=== PATIENT | female | born 1955 | race Caucasian/White ===

== ENCOUNTER 2017-08-12 11:00 | Emergency (ER) | payer BC ==
[2017-08-12] MEDS: LIDOCAINE 1% (MDV) 20 ML INJ SC (11:23)
[2017-08-12] MEDS: DIPHTH/TET/ACEL PERTUSS (ADULT) 0.5 ML VIAL IM* (11:23)
[2017-08-12] MEDS: STERILE WATER 1L IRRIG BTL IRR (11:23)
== END 2017-08-12 12:26 | disposition home or self-care (01) ==
LOC: FTE 11:00
DX: S91.112A Laceration without foreign body of left great toe without damage to nail, initial encounter (principal); E11.9 Type 2 diabetes mellitus without complications; W45.8XXA Other foreign body or object entering through skin, initial encounter; Y92.9 Unspecified place or not applicable; Z23 Encounter for immunization; Z79.4 Long term (current) use of insulin; Z79.82 Long term (current) use of aspirin
CPT/HCPCS: 12001; 73660; 90471; 90715; 99283-25

== ENCOUNTER 2017-10-01 16:11 | Emergency (ER) | payer BC ==
[2017-10-01 17:12] LABS: ADD MAN DIFF? NO
[2017-10-01 17:18] LABS: WHITE BLOOD COUNT 9.5 10^3/ul (4.8-10.8)
[2017-10-01 17:18] LABS: BASOPHILS % 0.3 % (0.0-2.0); EOSINOPHILS # 0.1 10^3/ul (0.0-0.5); EOSINOPHILS % 0.8 % (0.0-7.0); HEMOGLOBIN 11.9 g/dl (12.0-16.0); LYMPHOCYTES # 3.6 10^3/ul (0.8-2.9); LYMPHOCYTES % 37.4 % (15.0-51.0); MEAN CORPUSCULAR HEMOGLOBIN 25.1 pg (29.0-33.0); MEAN CORPUSCULAR HGB CONC 31.3 g/dl (32.0-37.0); MEAN CORPUSCULAR VOLUME 80.2 fl (82.0-101.0); MEAN PLATELET VOLUME 11.6 fl (7.4-10.4); MONOCYTE # 0.7 10^3/ul (0.3-0.9); MONOCYTES % 6.8 % (0.0-11.0); NEUTROPHIL # 5.2 10^3/ul (1.6-7.5); NEUTROPHILS % 54.4 % (39.0-77.0); PLATELET COUNT 228 10^3/UL (140-415); RED BLOOD COUNT 4.74 10^6/ul (4.20-5.40); RED CELL DISTRIBUTION WIDTH 14.8 % (11.5-14.5)
[2017-10-01 17:39] LABS: ALANINE AMINOTRANSFERASE 24 IU/L (13-69); ALBUMIN 4.3 g/dl (3.3-4.9); ALBUMIN/GLOBULIN RATIO 1.22; ALKALINE PHOSPHATASE 66 IU/L (42-121); ANION GAP 19 (8-16); ASPARTATE AMINO TRANSFERASE 17 IU/L (15-46); BILIRUBIN,INDIRECT 0.1 mg/dl (0-1.1); BILIRUBIN,TOTAL 0.1 mg/dl (0.2-1.3); BLOOD UREA NITROGEN 15 mg/dl (7-20); CALCIUM 9.8 mg/dl (8.4-10.2); CARBON DIOXIDE 26 mmol/L (21-31); CHLORIDE 106 mmol/L (97-110); CREATININE 0.58 mg/dl (0.44-1.00); GLUCOSE 207 mg/dl (70-220); POTASSIUM 4.7 mmol/L (3.5-5.1); SODIUM 146 mmol/L (135-144); TOTAL PROTEIN 7.8 g/dl (6.1-8.1)
[2017-10-01 17:47] LABS: INR 1.02; PROTIME 13.5 Sec (11.9-14.9); PT RATIO 1.1
[2017-10-01 17:48] LABS: B-TYPE NATRIURETIC PEPTIDE 61 PG/ML (0-125); PARTIAL THROMBOPLASTIN TIME 26.3 Sec (25.0-35.0)
[2017-10-01 17:49] LABS: TROPONIN-I < 0.012 ng/ml (0.00-0.12)
== END 2017-10-01 19:05 | disposition home or self-care (01) ==
LOC: E/R 16:11
DX: R06.00 Dyspnea, unspecified (principal); D64.9 Anemia, unspecified; E11.9 Type 2 diabetes mellitus without complications; I10 Essential (primary) hypertension; E03.9 Hypothyroidism, unspecified; Z79.4 Long term (current) use of insulin; Z79.82 Long term (current) use of aspirin
CPT/HCPCS: 36415; 71045; 80053; 83880; 84484; 85025; 85378; 85610; 85730; 93005; 99285-25

== ENCOUNTER 2017-10-12 13:35 | Inpatient (IN) | payer BC ==
[2017-10-12] MEDS ORDERED: ACETAMINOPHEN 500 MG TAB PO (15:30)
[2017-10-12] MEDS ORDERED: VANCOMYCIN IV PER PHARMACY XX (15:30)
[2017-10-12] MEDS ORDERED: GLUCOSE GEL 15 GRAM TUBE PO ×2 (16:00)
[2017-10-12] MEDS ORDERED: GLUCOSE GEL 15 GRAM TUBE BUCCAL (16:00)
[2017-10-12] MEDS ORDERED: GLUCAGON 1 MG INJ IM (16:00)
[2017-10-12] MEDS ORDERED: DEXTROSE 50% 50 ML SYRINGE IV ×2 (16:00)
[2017-10-12] MEDS: SOD CHLORIDE 0.45% 1,000 ML IV (16:03)
[2017-10-12] MEDS: [UNRECOGNIZED DRUG - REMARK] XX (17:30)
[2017-10-12] MEDS: VANCOMYCIN 2 GM in SOD CHLORIDE 0.9% 500 ML IVPB (17:31)
[2017-10-12 17:36] LABS: ADD MAN DIFF? NO
[2017-10-12 17:38] LABS: WHITE BLOOD COUNT 7.5 10^3/ul (4.8-10.8)
[2017-10-12 17:38] LABS: BASOPHILS % 0.4 % (0.0-2.0); EOSINOPHILS # 0.1 10^3/ul (0.0-0.5); EOSINOPHILS % 1.6 % (0.0-7.0); HEMATOCRIT 38.5 % (37.0-47.0); HEMOGLOBIN 12.1 g/dl (12.0-16.0); LYMPHOCYTES # 2.3 10^3/ul (0.8-2.9); MEAN CORPUSCULAR HEMOGLOBIN 25.4 pg (29.0-33.0); MEAN CORPUSCULAR HGB CONC 31.4 g/dl (32.0-37.0); MEAN CORPUSCULAR VOLUME 80.9 fl (82.0-101.0); MEAN PLATELET VOLUME 12.2 fl (7.4-10.4); MONOCYTE # 0.6 10^3/ul (0.3-0.9); MONOCYTES % 7.6 % (0.0-11.0); NEUTROPHIL # 4.4 10^3/ul (1.6-7.5); PLATELET COUNT 217 10^3/UL (140-415); RED BLOOD COUNT 4.76 10^6/ul (4.20-5.40); RED CELL DISTRIBUTION WIDTH 14.8 % (11.5-14.5)
[2017-10-12 18:13] LABS: ALANINE AMINOTRANSFERASE 24 IU/L (13-69); ALBUMIN 4.1 g/dl (3.3-4.9); ALBUMIN/GLOBULIN RATIO 1.24; ALKALINE PHOSPHATASE 58 IU/L (42-121); ANION GAP 17 (8-16); ASPARTATE AMINO TRANSFERASE 17 IU/L (15-46); BILIRUBIN,INDIRECT 0.1 mg/dl (0-1.1); BILIRUBIN,TOTAL 0.1 mg/dl (0.2-1.3); BLOOD UREA NITROGEN 19 mg/dl (7-20); CALCIUM 9.8 mg/dl (8.4-10.2); CARBON DIOXIDE 27 mmol/L (21-31); CHLORIDE 100 mmol/L (97-110); GLUCOSE 231 mg/dl (70-220); POTASSIUM 4.4 mmol/L (3.5-5.1); SODIUM 140 mmol/L (135-144); TOTAL PROTEIN 7.4 g/dl (6.1-8.1)
[2017-10-12] MEDS: ASPIRIN 81 MG TAB PO (18:19)
[2017-10-12] MEDS: INSULIN ASPART [NOVOLOG] 3 ML PEN SC ×2 (18:22→21:08)
[2017-10-12] MEDS: INSULIN GLARGINE [LANtus] 3 ML PEN SC (21:06)
[2017-10-12 22:10] LABS: ADD UMIC NO; UR ASCORBIC ACID NEGATIVE (NEGATIVE); UR BILIRUBIN (Dip) NEGATIVE (NEGATIVE); UR BLOOD (Dip) NEGATIVE (NEGATIVE); UR CLARITY CLEAR (CLEAR); UR COLOR STRAW (YELLOW); UR GLUCOSE (Dip) 1+ mg/dL (NEGATIVE); UR KETONES (Dip) NEGATIVE (NEGATIVE); UR LEUKOCYTE ESTERASE (Dip) NEGATIVE Leu/ul (NEGATIVE); UR NITRITE (Dip) NEGATIVE (NEGATIVE); UR SPECIFIC GRAVITY (Dip) 1.009 (1.003-1.030); UR TOTAL PROTEIN (Dip) NEGATIVE (NEGATIVE); UR UROBILINOGEN (Dip) NEGATIVE (NEGATIVE)
[2017-10-12] MEDS ORDERED: ONDANSETRON 4 MG INJ IV (22:30)
[2017-10-12] MEDS: ZOLPIDEM 5 MG TAB PO (22:58)
[2017-10-13] MEDS: [UNRECOGNIZED DRUG - REMARK] XX ×2 (01:30→09:30)
[2017-10-13] MEDS: INSULIN ASPART [NOVOLOG] 3 ML PEN SC ×6 (03:00→21:48)
[2017-10-13] MEDS: VANCOMYCIN 1.25 GM in SOD CHLORIDE 0.9% 250 ML IVPB ×2 (05:41→17:45)
[2017-10-13] MEDS: LEVOTHYROXINE 100 MCG TAB PO (05:41)
[2017-10-13] MEDS: ASPIRIN 81 MG TAB PO (08:59)
[2017-10-13] MEDS: SOD CHLORIDE 0.45% 1,000 ML IV (13:10)
[2017-10-13] MEDS: ENOXAPARIN 30 MG/0.3 ML SYG SC (20:48)
[2017-10-13] MEDS: JANUVIA PO (20:50)
[2017-10-13] MEDS: SIMVASTATIN PO (20:50)
[2017-10-13] MEDS: INSULIN GLARGINE [LANtus] 3 ML PEN SC (21:01)
[2017-10-14] MEDS: ZOLPIDEM 5 MG TAB PO ×2 (01:29→22:24)
[2017-10-14] MEDS: INSULIN ASPART [NOVOLOG] 3 ML PEN SC ×8 (02:32→20:47)
[2017-10-14 04:19] LABS: ADD MAN DIFF? NO
[2017-10-14 04:24] LABS: WHITE BLOOD COUNT 6.3 10^3/ul (4.8-10.8)
[2017-10-14 04:24] LABS: BASOPHILS % 0.5 % (0.0-2.0); EOSINOPHILS # 0.2 10^3/ul (0.0-0.5); EOSINOPHILS % 2.7 % (0.0-7.0); HEMATOCRIT 35.8 % (37.0-47.0); HEMOGLOBIN 11.1 g/dl (12.0-16.0); LYMPHOCYTES # 2.2 10^3/ul (0.8-2.9); LYMPHOCYTES % 35.3 % (15.0-51.0); MEAN CORPUSCULAR HEMOGLOBIN 25.1 pg (29.0-33.0); MEAN CORPUSCULAR VOLUME 80.8 fl (82.0-101.0); MEAN PLATELET VOLUME 11.5 fl (7.4-10.4); MONOCYTE # 0.5 10^3/ul (0.3-0.9); MONOCYTES % 8.6 % (0.0-11.0); NEUTROPHIL # 3.3 10^3/ul (1.6-7.5); NEUTROPHILS % 52.6 % (39.0-77.0); PLATELET COUNT 187 10^3/UL (140-415); RED BLOOD COUNT 4.43 10^6/ul (4.20-5.40)
[2017-10-14 04:39] LABS: ANION GAP 15 (8-16); BLOOD UREA NITROGEN 15 mg/dl (7-20); CALCIUM 9.2 mg/dl (8.4-10.2); CARBON DIOXIDE 26 mmol/L (21-31); CHLORIDE 103 mmol/L (97-110); CREATININE 0.69 mg/dl (0.44-1.00); GLUCOSE 341 mg/dl (70-220); POTASSIUM 4.5 mmol/L (3.5-5.1); SODIUM 139 mmol/L (135-144)
[2017-10-14] MEDS: VANCOMYCIN 1.25 GM in SOD CHLORIDE 0.9% 250 ML IVPB ×2 (05:05→16:46)
[2017-10-14] MEDS: LEVOTHYROXINE 100 MCG TAB PO (06:44)
[2017-10-14] MEDS: ASPIRIN 81 MG TAB PO (09:30)
[2017-10-14] MEDS: ENOXAPARIN 30 MG/0.3 ML SYG SC (09:31)
[2017-10-14] MEDS: SOD CHLORIDE 0.45% 1,000 ML IV ×2 (09:35→22:19)
[2017-10-14] MEDS: SIMVASTATIN PO (20:41)
[2017-10-14] MEDS: JANUVIA PO (20:42)
[2017-10-14] MEDS: INSULIN GLARGINE [LANtus] 3 ML PEN SC (20:48)
[2017-10-15] MEDS: LEVOTHYROXINE 100 MCG TAB PO (05:07)
[2017-10-15] MEDS: VANCOMYCIN 1.25 GM in SOD CHLORIDE 0.9% 250 ML IVPB ×2 (05:08→17:25)
[2017-10-15] MEDS: ASPIRIN 81 MG TAB PO (08:29)
[2017-10-15] MEDS: INSULIN ASPART [NOVOLOG] 3 ML PEN SC ×7 (08:31→21:01)
[2017-10-15] MEDS: ENOXAPARIN 30 MG/0.3 ML SYG SC (08:33)
[2017-10-15] MEDS: SIMVASTATIN PO (20:55)
[2017-10-15] MEDS: JANUVIA PO (20:56)
[2017-10-15] MEDS: INSULIN GLARGINE [LANtus] 3 ML PEN SC (21:02)
[2017-10-15] MEDS: SOD CHLORIDE 0.45% 1,000 ML IV (23:30)
[2017-10-16] MEDS: VANCOMYCIN 1.25 GM in SOD CHLORIDE 0.9% 250 ML IVPB (05:01)
[2017-10-16 05:33] LABS: BLOOD UREA NITROGEN 15 mg/dl (7-20)
[2017-10-16 05:33] LABS: CREATININE 0.65 mg/dl (0.44-1.00)
[2017-10-16] MEDS: LEVOTHYROXINE 100 MCG TAB PO (05:51)
[2017-10-16] MEDS: SODIUM HYPOCHLORITE 1/40% 1L IRRIG IRR ×3 (05:51→21:09)
[2017-10-16] MEDS: ASPIRIN 81 MG TAB PO (08:32)
[2017-10-16] MEDS: INSULIN ASPART [NOVOLOG] 3 ML PEN SC ×8 (08:35→21:25)
[2017-10-16] MEDS: ENOXAPARIN 30 MG/0.3 ML SYG SC (08:37)
[2017-10-16] MEDS: SOD CHLORIDE 0.45% 1,000 ML IV (19:30)
[2017-10-16] MEDS: SIMVASTATIN PO (21:08)
[2017-10-16] MEDS: JANUVIA PO (21:08)
[2017-10-16] MEDS: INSULIN GLARGINE [LANtus] 3 ML PEN SC (21:12)
[2017-10-17] MEDS: ACCU-CHEK XX (01:47)
[2017-10-17] MEDS: INSULIN ASPART [NOVOLOG] 3 ML PEN SC ×3 (01:48→09:05)
[2017-10-17] MEDS: LEVOTHYROXINE 100 MCG TAB PO (06:21)
[2017-10-17] MEDS: ASPIRIN 81 MG TAB PO (09:02)
[2017-10-17] MEDS: SODIUM HYPOCHLORITE 1/40% 1L IRRIG IRR (09:05)
[2017-10-17] MEDS: LORAZEPAM 0.5 MG TAB PO (09:52)
== END 2017-10-17 15:20 | disposition home or self-care (01) | DRG 623 ==
LOC: MS1 13:35
PROC: 0JBR0ZZ Excision of Left Foot Subcutaneous Tissue and Fascia, Open Approach (ICD-10-PCS; principal; 2017-10-15)
DX: E11.621 Type 2 diabetes mellitus with foot ulcer (principal); L97.528 Non-pressure chronic ulcer of other part of left foot with other specified severity; E11.42 Type 2 diabetes mellitus with diabetic polyneuropathy; E11.65 Type 2 diabetes mellitus with hyperglycemia; L03.032 Cellulitis of left toe; E03.9 Hypothyroidism, unspecified; I10 Essential (primary) hypertension; E78.5 Hyperlipidemia, unspecified
CPT/HCPCS: 73630-LT; 73718; 80048; 80053; 80202; 81003; 82565; 82962; 84520; 85025; 85651; 87040; 87070; 87086; 93005; 93926; 93971; 97161

== ENCOUNTER 2017-10-18 15:49 | Emergency (ER) | payer BC ==
[2017-10-18 17:55] LABS: ADD MAN DIFF? NO
[2017-10-18] MEDS: SOD CHLORIDE 0.9% 500 ML IV (17:56)
[2017-10-18 17:59] LABS: WHITE BLOOD COUNT 8.7 10^3/ul (4.8-10.8)
[2017-10-18 17:59] LABS: BASOPHIL # 0.1 10^3/ul (0.0-0.1); BASOPHILS % 0.7 % (0.0-2.0); EOSINOPHILS # 0.1 10^3/ul (0.0-0.5); EOSINOPHILS % 1.2 % (0.0-7.0); HEMATOCRIT 39.7 % (37.0-47.0); HEMOGLOBIN 12.6 g/dl (12.0-16.0); LYMPHOCYTES # 2.6 10^3/ul (0.8-2.9); LYMPHOCYTES % 29.9 % (15.0-51.0); MEAN CORPUSCULAR HEMOGLOBIN 25.4 pg (29.0-33.0); MEAN CORPUSCULAR HGB CONC 31.7 g/dl (32.0-37.0); MEAN PLATELET VOLUME 11.5 fl (7.4-10.4); MONOCYTE # 0.7 10^3/ul (0.3-0.9); MONOCYTES % 8.2 % (0.0-11.0); NEUTROPHIL # 5.2 10^3/ul (1.6-7.5); NEUTROPHILS % 59.7 % (39.0-77.0); PLATELET COUNT 257 10^3/UL (140-415); RED BLOOD COUNT 4.96 10^6/ul (4.20-5.40); RED CELL DISTRIBUTION WIDTH 15.2 % (11.5-14.5)
[2017-10-18 18:18] LABS: ANION GAP 14 (8-16); BLOOD UREA NITROGEN 22 mg/dl (7-20); CALCIUM 10.3 mg/dl (8.4-10.2); CARBON DIOXIDE 30 mmol/L (21-31); CHLORIDE 104 mmol/L (97-110); CREATININE 0.66 mg/dl (0.44-1.00); GLUCOSE 156 mg/dl (70-220); POTASSIUM 4.4 mmol/L (3.5-5.1); SODIUM 144 mmol/L (135-144)
[2017-10-18 18:22] LABS: INR 0.98; PROTIME 13.1 Sec (11.9-14.9)
[2017-10-18 18:23] LABS: PARTIAL THROMBOPLASTIN TIME 26.5 Sec (25.0-35.0)
[2017-10-18 18:48] LABS: TROPONIN-I < 0.012 ng/ml (0.00-0.12)
[2017-10-18] MEDS: IOHEXOL 100 ML (19:46)
[2017-10-18] MEDS: SOD CHLORIDE 0.9% 100 ML (19:46)
== END 2017-10-18 20:10 | disposition home or self-care (01) ==
LOC: E/R 15:49
DX: R20.0 Anesthesia of skin (principal); E11.9 Type 2 diabetes mellitus without complications; E03.9 Hypothyroidism, unspecified; Z79.4 Long term (current) use of insulin; Z79.82 Long term (current) use of aspirin; Z79.84 Long term (current) use of oral hypoglycemic drugs
CPT/HCPCS: 36415; 70450; 71275; 80048; 84484; 85025; 85610; 85730; 93005; 96360; 99285-25

== ENCOUNTER → 2018-10-04 | Outpatient (CLI) | payer BC ==
[2018-10-04 08:43] LABS: ADD MAN DIFF? NO
[2018-10-04 08:53] LABS: WHITE BLOOD COUNT 7.4 10^3/ul (4.8-10.8)
[2018-10-04 08:54] LABS: BASOPHILS % 0.5 % (0.0-2.0); EOSINOPHILS # 0.1 10^3/ul (0.0-0.5); EOSINOPHILS % 0.9 % (0.0-7.0); HEMATOCRIT 39.6 % (37.0-47.0); HEMOGLOBIN 12.3 g/dl (12.0-16.0); LYMPHOCYTES # 2.3 10^3/ul (0.8-2.9); LYMPHOCYTES % 30.8 % (15.0-51.0); MEAN CORPUSCULAR HEMOGLOBIN 25.8 pg (29.0-33.0); MEAN CORPUSCULAR HGB CONC 31.1 g/dl (32.0-37.0); MEAN PLATELET VOLUME 12.4 fl (7.4-10.4); MONOCYTE # 0.5 10^3/ul (0.3-0.9); MONOCYTES % 7.2 % (0.0-11.0); NEUTROPHIL # 4.4 10^3/ul (1.6-7.5); NEUTROPHILS % 60.1 % (39.0-77.0); PLATELET COUNT 227 10^3/UL (140-415); RED BLOOD COUNT 4.77 10^6/ul (4.20-5.40)
[2018-10-04 09:11] LABS: HEMOGLOBIN A1C 12.5 % (0-5.9)
[2018-10-04 09:14] LABS: ALANINE AMINOTRANSFERASE 28 IU/L (13-69); ALBUMIN 4.1 g/dl (3.3-4.9); ALBUMIN/GLOBULIN RATIO 1.28; ALKALINE PHOSPHATASE 60 IU/L (42-121); ANION GAP 10 (5-13); ASPARTATE AMINO TRANSFERASE 28 IU/L (15-46); BLOOD UREA NITROGEN 23 mg/dl (7-20); CALCIUM 10.6 mg/dl (8.4-10.2); CARBON DIOXIDE 26 mmol/L (21-31); CHLORIDE 104 mmol/L (97-110); CHOL/HDL RATIO 4.1 RATIO; CHOLESTEROL 136 mg/dl (100-200); CREATININE 0.59 mg/dl (0.44-1.00); Estimated GFR > 60 mL/min (>60); GLUCOSE 335 mg/dl (70-220); HDL CHOLESTEROL 33 mg/dl (35-98); LDL CHOLESTEROL,CALCULATED 69 mg/dl; SODIUM 140 mmol/L (135-144); TOTAL PROTEIN 7.3 g/dl (6.1-8.1); TRIGLYCERIDES 169 mg/dl (0-149)
== END | disposition home or self-care (01) ==
LOC: LAB 08:21
DX: E78.5 Hyperlipidemia, unspecified (principal)
CPT/HCPCS: 80053; 80061; 82306; 83036; 85025

== ENCOUNTER 2018-11-13 08:05 | Day surgery (SDC) | payer BC ==
[2018-11-13] MEDS ORDERED: INSULIN REGULAR, HUMAN 100 UNIT/1 ML 3ML VIAL SC (09:32)
[2018-11-13] MEDS ORDERED: FENTAnyl 50 MCG/ML VIAL (09:47)
[2018-11-13] MEDS ORDERED: PROPOFOL 20 ML (09:47)
[2018-11-13] MEDS ORDERED: INSULIN REGULAR, HUMAN 100 UNIT/1 ML 3ML VIAL IV (10:00)
[2018-11-13] MEDS ORDERED: ONDANSETRON 4 MG INJ IV (10:00)
== END 2018-11-13 13:40 | disposition home or self-care (01) ==
LOC: GIL 08:05
DX: Z12.11 Encounter for screening for malignant neoplasm of colon (principal); D12.5 Benign neoplasm of sigmoid colon; K64.8 Other hemorrhoids; D17.79 Benign lipomatous neoplasm of other sites; E11.9 Type 2 diabetes mellitus without complications; E03.9 Hypothyroidism, unspecified; Z79.82 Long term (current) use of aspirin; Z79.84 Long term (current) use of oral hypoglycemic drugs; Z79.4 Long term (current) use of insulin
CPT/HCPCS: 45380; 82962; 88305

== ENCOUNTER → 2018-11-22 | Outpatient (CLI) | payer BC | END | disposition home or self-care (01) | LOC: RAD 13:03 | DX: M19.041 Primary osteoarthritis, right hand (principal) | CPT/HCPCS: 73130; 73130-RT ==

== ENCOUNTER → 2018-11-27 | Outpatient (CLI) | payer BC ==
[2018-11-27 08:42] LABS: ADD MAN DIFF? NO
[2018-11-27 08:49] LABS: BASOPHILS % 0.5 % (0.0-2.0); EOSINOPHILS # 0.1 10^3/ul (0.0-0.5); EOSINOPHILS % 1.2 % (0.0-7.0); HEMATOCRIT 40.2 % (37.0-47.0); HEMOGLOBIN 12.5 g/dl (12.0-16.0); LYMPHOCYTES # 2.2 10^3/ul (0.8-2.9); LYMPHOCYTES % 30.1 % (15.0-51.0); MEAN CORPUSCULAR HEMOGLOBIN 25.6 pg (29.0-33.0); MEAN CORPUSCULAR HGB CONC 31.1 g/dl (32.0-37.0); MEAN CORPUSCULAR VOLUME 82.4 fl (82.0-101.0); MEAN PLATELET VOLUME 11.9 fl (7.4-10.4); MONOCYTE # 0.6 10^3/ul (0.3-0.9); MONOCYTES % 7.6 % (0.0-11.0); NEUTROPHIL # 4.4 10^3/ul (1.6-7.5); NEUTROPHILS % 60.2 % (39.0-77.0); PLATELET COUNT 251 10^3/UL (140-415); RED BLOOD COUNT 4.88 10^6/ul (4.20-5.40); RED CELL DISTRIBUTION WIDTH 14.7 % (11.5-14.5)
[2018-11-27 08:49] LABS: WHITE BLOOD COUNT 7.4 10^3/ul (4.8-10.8)
[2018-11-27 09:29] LABS: ALANINE AMINOTRANSFERASE 27 IU/L (13-69); ALBUMIN 4.1 g/dl (3.3-4.9); ALBUMIN/GLOBULIN RATIO 1.17; ALKALINE PHOSPHATASE 62 IU/L (42-121); ANION GAP 12 (5-13); ASPARTATE AMINO TRANSFERASE 25 IU/L (15-46); BILIRUBIN,INDIRECT 0.4 mg/dl (0-1.1); BILIRUBIN,TOTAL 0.4 mg/dl (0.2-1.3); BLOOD UREA NITROGEN 20 mg/dl (7-20); CALCIUM 9.7 mg/dl (8.4-10.2); CARBON DIOXIDE 28 mmol/L (21-31); CHLORIDE 103 mmol/L (97-110); CHOL/HDL RATIO 4.4 RATIO; CHOLESTEROL 155 mg/dl (100-200); CREATININE 0.63 mg/dl (0.44-1.00); Estimated GFR > 60 mL/min (>60); GLUCOSE 343 mg/dl (70-220); HDL CHOLESTEROL 35 mg/dl (35-98); LDL CHOLESTEROL,CALCULATED 87 mg/dl; SODIUM 143 mmol/L (135-144); TOTAL PROTEIN 7.6 g/dl (6.1-8.1); TRIGLYCERIDES 167 mg/dl (0-149)
[2018-11-27 09:33] LABS: C-REACTIVE PROTEIN HIGH SENSI 0.41 mg/dl (0.00-0.74)
== END | disposition home or self-care (01) ==
LOC: LAB 08:24
DX: E78.5 Hyperlipidemia, unspecified (principal)
CPT/HCPCS: 80053; 80061; 85025; 86140